=== PATIENT | female | born 2000 | race Caucasian/White ===

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

== ENCOUNTER 2019-01-19 18:48 | Observation (INO) | payer MEDICAID ==
[~2019-01-19] VITALS: Ht 160 cm; Wt 86.2 kg
[2019-01-19] MEDS ORDERED: FERR325T6 PO (19:54)
[2019-01-19] MEDS ORDERED: PNV1TABL50 MT (19:54)
[2019-01-19] MEDS ORDERED: LACTATED RINGERS 1,000 ML IV SCH (20:00)
[2019-01-19 20:12] LABS: CLARITY URINE CLEAR (CLEAR); COLOR URINE YELLOW (YELLOW); KETONES URINE TRACE (NEGATIVE); LEUKOCYTE ESTERASE URINE NEGATIVE (NEGATIVE); NITRITE URINE NEGATIVE (NEGATIVE); OCCULT BLOOD URINE NEGATIVE (NEGATIVE); PH URINE 6.5 (4.5-8.0); PROTEIN URINE NEGATIVE (NEGATIVE); SPECIFIC GRAVITY URINE 1.031 (1.005-1.030)
== END 2019-01-19 20:30 | disposition home or self-care (01) ==
LOC: 8 EST LDRP 18:48
PROVIDERS: ADMIT Obstetrics & Gynecology; ATTEND Obstetrics & Gynecology
DX: O26.893 Other specified pregnancy related conditions, third trimester (principal); Z3A.28 28 weeks gestation of pregnancy
CPT/HCPCS: 81003; 99281; G0378; 96360

== ENCOUNTER 2019-05-03 05:53 | Emergency (ER) | payer MEDICAID ==
[~2019-05-03] VITALS: Ht 162.6 cm; Wt 80.0 kg
[~2019-05-03 05:53] MED LIST: FERR325T6 PO; PNV1TABL50 MT
[2019-05-03 07:26] LABS: CHLORIDE 106 mEq/L (98-107)
[2019-05-03 07:36] LABS: HCG SCREEN NEGATIVE
[2019-05-03 07:37] LABS: BASOPHILS % 0.5 % (0.0-2.0); EOSINOPHILS % 2.3 % (0.0-5.0); HEMATOCRIT. 37.7 % (36.0-48.0); HEMOGLOBIN. 12.3 g/dL (12.0-16.0); LYMPHOCYTES % 29.5 % (20.0-50.0); MEAN CORPUSCULAR HEMOGLOBIN 25.7 pg (28.0-32.0); MEAN CORPUSCULAR VOLUME 78.4 fL (81.0-99.0); MEAN PLATELET VOLUME 8.9 fl (7.4-10.4); MONOCYTES % 7.9 % (2.0-8.0); NEUTROPHILS % 59.8 % (40.0-76.0); PLATELET 374 x1000/uL (130-400); RED CELL DISTRIBUTION WIDTH 15.1 % (11.6-14.6)
[2019-05-03] MEDS ORDERED: ONDANSETRON HCL 4MG/2ML INJ IV NR (09:00)
[2019-05-03] MEDS ORDERED: MAGNESIUM/ALUMINUM HYDROXIDE/SIMETHICONE 30ML UDC PO NR (09:00)
[2019-05-03 12:38] VITALS: BP 117/66
== END 2019-05-03 12:38 | disposition home or self-care (01) ==
LOC: ER 05:53
DX: R10.10 Upper abdominal pain, unspecified (principal); R11.10 Vomiting, unspecified
CPT/HCPCS: 36415; 80053; 81025; 83690; 84703; 85025; 96374; 99283; J2405; Z7610

== ENCOUNTER 2021-11-11 23:22 | Emergency (ER) | payer MEDICAID ==
[~2021-11-11] VITALS: Ht 167.6 cm; Wt 92.5 kg
[2021-11-12 00:20] LABS: BASOPHILS % 0.7 % (0.0-2.0); EOSINOPHILS % 0.5 % (0.0-5.0); HEMATOCRIT. 32.2 % (36.0-48.0); HEMOGLOBIN. 10.6 g/dL (12.0-16.0); LYMPHOCYTES % 19.9 % (20.0-50.0); MEAN CORPUSCULAR HEMOGLOBIN 25.6 pg (28.0-32.0); MEAN CORPUSCULAR VOLUME 77.5 fL (81.0-99.0); MEAN PLATELET VOLUME 8.6 fl (7.4-10.4); MONOCYTES % 6.2 % (2.0-8.0); NEUTROPHILS % 72.7 % (40.0-76.0); PLATELET 367 x1000/uL (130-400); RED BLOOD CELL COUNT 4.16 mill/uL (4.2-5.4); RED CELL DISTRIBUTION WIDTH 14.8 % (11.6-14.6)
[2021-11-12 00:28] LABS: CHLORIDE 108 mEq/L (98-107)
[2021-11-12 01:20] VITALS: BP 128/70
== END 2021-11-12 01:45 | disposition home or self-care (01) ==
LOC: ER 23:22
DX: R07.89 Other chest pain (principal); F43.0 Acute stress reaction
CPT/HCPCS: 36415; 71045; 80053; 84484; 85025; 93005; 99285

== ENCOUNTER 2025-05-13 22:01 | Emergency (ER) | payer MEDICAID ==
[~2025-05-13] VITALS: Ht 165.1 cm; Wt 87.0 kg
[2025-05-13 22:17] VITALS: O2SAT 99
[2025-05-14] MEDS: LIDOCAINE HCL/EPINEPHRINE 1%-EPI 1:100,000 20ML VIAL INFIL ONE (00:05)
[2025-05-14] MEDS: TETANUS, DIPHTHERIA, PERTUSSIS VAC/PF 0.5ML (>10YR OLD) IM ONE (00:14)
[2025-05-14 00:24] VITALS: BP 115/45; PULSE 57; RESP 16; TEMP 37.2; O2SAT 98
== END 2025-05-14 00:18 | disposition home or self-care (01) ==
LOC: ER 22:01
DX: S01.81XA Laceration without foreign body of other part of head, initial encounter (principal); S09.90XA Unspecified injury of head, initial encounter; Z79.899 Other long term (current) drug therapy; X58.XXXA Exposure to other specified factors, initial encounter; Y93.89 Activity, other specified; Y92.89 Other specified places as the place of occurrence of the external cause; Y99.8 Other external cause status
CPT/HCPCS: 12011; 90471; 90715; 99283